=== PATIENT | male | born 1960 | race Caucasian/White ===

== ENCOUNTER → 2017-10-23 14:02 | Outpatient (POV) | payer MEDICARE, SELFPAY | PROVIDERS: PCP Family Medicine | DX: Z00.00 Encounter for general adult medical examination without abnormal findings (principal) ==

== ENCOUNTER → 2019-04-22 14:29 | Outpatient (POV) | payer MEDICARE, SELFPAY | PROVIDERS: Visit Provider Family Medicine | DX: Z00.00 Encounter for general adult medical examination without abnormal findings (principal) ==

== ENCOUNTER → 2021-01-19 13:29 | Outpatient (CLI) | payer MEDICARE, SELFPAY ==
--- NOTE | 2021-01-19 13:40 | XR_ITS ---
PROCEDURE: XR SHOULDER RT MIN 2V CLINICAL INDICATION: RT SHOULDER PAIN COMPARISON: No exams were available for comparison FINDINGS: No fracture or dislocation. No lytic or blastic change. There is normal mineralization. There is minimal hypertrophic change along the undersurface of the acromion. No significant subacromial stenosis. Other findings:None. IMPRESSION: Minimal hypertrophic change the acromion otherwise negative Dictated by: Garret Davalos MD 01/19/2021 13:57 Garret Davalos MD in [place] 01/19/2021 13:57
== END ==
PROVIDERS: PCP Nurse Practitioner; Visit Provider Nurse Practitioner
DX: M25.519 Pain in unspecified shoulder (principal)
CPT/HCPCS: 73030

== ENCOUNTER → 2023-08-06 14:33 | Outpatient (CLI) | payer MEDICARE, SELFPAY ==
--- NOTE | 2023-08-06 14:46 | MR_ITS ---
FINAL REPORT CLINICAL HISTORY: LEFT SCIATICA NERVE PAIN COMPARISON: None FINDINGS: Multiplanar MR imaging of the lumbar spine was performed without contrast. On the sagittal T2-weighted images, there is abnormal decreased signal throughout the lumbar discs. The vertebrae are of normal height. The vertebral alignment is normal. L1-2: There is no significant canal stenosis or neural foraminal narrowing. L2-3: A small annular bulge is present. There is mild bilateral neural foraminal narrowing. L3-4: A small to moderate annular bulge is present, with moderate bilateral neural foraminal narrowing. L4-5: A small to moderate annular bulge is present, with mild to moderate bilateral neural foraminal narrowing. L5-S1: There is no significant canal stenosis or neural foraminal narrowing. IMPRESSION: Multilevel lumbar degenerative changes present, with neural foraminal narrowing at the L3-4 and L4-5 levels as described. Reviewed, Interpreted and Dictated by Arnoldo Teresa MD Transcribed by Mariam Love Authenticated and . [facility]
== END ==
LOC: RAD 14:34
PROVIDERS: PCP Nurse Practitioner; Visit Provider Family Medicine
DX: M54.32 Sciatica, left side (principal)
CPT/HCPCS: 72148; 76376

== ENCOUNTER → 2023-09-18 14:59 | Outpatient (POV) | payer MEDICARE, SELFPAY ==
--- NOTE | 2023-09-18 15:01 | A.OFFVIS_ITS ---
HPI Data of Consult Patient: new to practice Consult date: 09/18/23 Requesting Physician: Margaux Villarreal APRN Primary Care Provider: Edy Celis MD Consult Narrative History of present illness: Mr. Villegas is a 63 year old male who presents today as a new patient. He is a referral from Dr. Celis's office. Today he rates his pain an 8 out of 10. Patient states his pain is all in his mid to low back with radiating symptoms into his bilateral lower extremities. Patient does state this is been going on for at least a year and progressively worsening over time. Patient denies any specific trauma or injury that initially led to his symptoms. Patient does describe his pain as a achy sensation with some sharp shooting pains and some numbness into his extremities. Patient does state that the pain does interfere with his ability perform activities of daily living such as cooking and cleaning or his hobbies such as golfing. Patient does state the pain is much worse when he is up for prolonged walking or standing and that frequently has to stop and take breaks. Patient has tried Tylenol and ibuprofen along with heat and ice and topicals with minimal relief. Patient denies any previous back surgery or injection history. Patient states he has saw a chiropractor on a regular basis and it does help however it is only been temporary relief and it comes back. Patient states he has typically very active and does home stretching and exercise for longer than 6 weeks with minimal improvement. Patient denies any heart or kidney issues. He is interested in any help we may be able to provide. Patient is not on any scheduled medications. His Reggie has been reviewed and is appropriate. CC: Margaux Villarreal APRN [facility] Disclaimer: The information contained in this section may have been updated after the patient was seen, as this information can be updated by other users. Medical History (Updated 09/18/23 @ 15:44 by Margaux Villarreal APRN) Cataract Depression HTN (hypertension) EDOUARD (obstructive sleep apnea) Osteoarthritis Seasonal allergies Surgical History (Updated 09/18/23 @ 15:27 by Adilia Knight RN) H/O arthroscopic knee surgery H/O shoulder surgery History of partial knee replacement S/P LASIK (laser assisted in situ keratomileusis) of both eyes Family History (Updated 09/18/23 @ 15:34 by Adilia Knight RN) Other Heart disease Viral meningitis Social History Smoking Status: Unknown if ever smoked alcohol intake: never current occupational status: employed Travel in the last 8 weeks: None Review of Systems Review of Systems Review of systems:: pertinent systems reviewed and negative unless documented below Review of systems (narrative): Review of Systems: General: No recent weight changes, no fever, no sleep disturbances Respiratory: No cough, no shortness of air, no recurring pulmonary infections Cardiovascular/peripheral vascular: No chest pain, no palpitations, no edema, no shortness of breath Gastrointestinal: No new onset incontinence, normal bowel movements reported Genitourinary: No new onset incontinence Musculoskeletal: Low back pain, bilateral leg pain Psychiatric: [Normal mood/affect] Neurological: [Denies weakness in extremities], [denies balance issues] Meds Home Medications and Allergies Home Medications Medication Instructions Recorded Confirmed Type benazepril 40 mg tablet 40 mg PO DAILY BLOOD PRESSURE 09/18/23 09/18/23 History bupropion HCl 300 mg 24 hr tablet, 300 mg PO DAILY MOOD 09/18/23 09/18/23 History extended release fluoxetine 40 mg capsule 40 mg PO DAILY MOOD 09/18/23 09/18/23 History montelukast 10 mg tablet 10 mg PO DAILY ALLERGIES 09/18/23 09/18/23 History New Prescriptions to Start Prescriptions: Allergies Allergy/AdvReac Type Severity Reaction Status Date / Time No Known Allergies Allergy Verified 06/03/18 11:43 Objective Narrative: Physical Exam: General: Alert and oriented x3, no acute distress, pleasant and cooperative Lungs: Respirations even and unlabored, symmetrical chest expansion Eyes: PERRL Musculoskeletal: Flexion and extension of lumbar [spine] somewhat guarded secondary to pain, [antalgic gait noted] Neurological: Speech clear, no gross sensory deficit Additional findings Additional findings: FINDINGS: Multiplanar MR imaging of the lumbar spine was performed without contrast. On the sagittal T2-weighted images, there is abnormal decreased signal throughout the lumbar discs. The vertebrae are of normal height. The vertebral alignment is normal. L1-2: There is no significant canal stenosis or neural foraminal narrowing. L2-3: A small annular bulge is present. There is mild bilateral neural foraminal narrowing. L3-4: A small to moderate annular bulge is present, with moderate bilateral neural foraminal narrowing. L4-5: A small to moderate annular bulge is present, with mild to moderate bilateral neural foraminal narrowing. L5-S1: There is no significant canal stenosis or neural foraminal narrowing. IMPRESSION: Multilevel lumbar degenerative changes present, with neural foraminal narrowing at the L3-4 and L4-5 levels as described. Reviewed, Interpreted and Dictated by Arnoldo Teresa MD Transcribed by Mariam Love Authenticated and . [facility] Assessment and Plan *Assessment and plan (1) Degenerative disc disease, lumbar: Status: Acute Category: Medical Code(s): M51.36 - Other intervertebral disc degeneration, lumbar region (2) Low back pain: Status: Acute Qualifiers: Chronicity: chronic Back pain laterality: bilateral Sciatica presence: without sciatica Qualified Code(s): M54.50 - Low back pain, unspecified; G89.29 - Other chronic pain Category: Medical Code(s): M54.50 - Low back pain, unspecified (3) Lumbar radiculopathy: Status: Acute Category: Medical Code(s): M54.16 - Radiculopathy, lumbar region (4) Mid back pain: Status: Acute Category: Medical Code(s): M54.9 - Dorsalgia, unspecified Plan Patient is experiencing significant pain in his low back and bilateral lower extremities. Patient had limited range of motion of his lumbar spine during today's visit. I have discussed with the patient that he may benefit from a lumbar epidural steroid injection. Risk and benefits were discussed with the patient and he would like to proceed forward with this plan of care. Patient is not on any blood thinners. I will also order the patient a compounded cream. Patient has tried and failed conservative treatment such as oral medications, heat and ice, topicals, chiropractor therapy, at home stretching exercises for longer than 6 weeks. Patient will be scheduled for an LESI L3-L4 under fluoroscopy. Patient has been instructed to contact the clinic with any concerns before the next appointment. Dr. Harley has reviewed this note and agrees with this plan of care. This note was dictated using voice recognition software and make contain errors or omissions.
[2023-09-18 15:40] VITALS: BP 132/79; PULSE 70; RESP 18; O2SAT 94; BMI 38.0
== END ==
PROVIDERS: PCP Family Medicine; Visit Provider Nurse Practitioner Family
DX: M51.16 Intervertebral disc disorders with radiculopathy, lumbar region (principal); G89.29 Other chronic pain; M54.6 Pain in thoracic spine; M54.50 Low back pain, unspecified
CPT/HCPCS: 99202; G0463

== ENCOUNTER 2023-10-01 08:40 | Day surgery (SDC) | payer MEDICARE, SELFPAY ==
[2023-10-01 08:54] VITALS: BP 160/85; PULSE 73; RESP 18; TEMP 36.2; O2SAT 94; BMI 38.5
[2023-10-01] MEDS: methylPREDNISolone ACETATE 80MG/ML VIAL 80 MG (09:16)
[2023-10-01 09:17] VITALS: BP 171/82; PULSE 72; RESP 18; O2SAT 97
[2023-10-01 09:18] VITALS: BP 171/82; PULSE 69; RESP 18; O2SAT 97
[2023-10-01 09:20] VITALS: BP 188/89; PULSE 71; RESP 16; O2SAT 94
--- NOTE | 2023-10-01 09:20 | EXP.PAIN.PRO ---
Procedure Date: 10/01/23 Time: 09:10 Anesthesiologist:: Juan Covarrubias CRNA Complications:: None Pre-procedure Diagnosis:: Degenerative disc lumbar spine multilevels. Lumbar radiculopathy. Post-procedure Diagnosis:: Same. Indications for Procedure:: Very pleasant 63-year-old male comes to clinic today for L3-4 lumbar epidural steroid injection. Patient describes low back pain as constant, dull, aching. Patient also reports bilateral hip and leg radiculopathy. He rates his pain 8/10. Procedure Details:: Procedure: Lumbar epidural steroid injection under fluoroscopy Informed consent was obtained and the risks and benefits of the procedure were explained to the patient. The patient was taken to the procedure room and noninvasive monitors placed, including noninvasive blood pressure cuff and pulse oximeter. The back was viewed using C-arm Fluoroscopy and prepped using Chloraprep as a cleansing solution and the L4-L5 interspace was palpated. Skin and subcutaneous tissues were anesthetized using lidocaine 1.5% and a 25-gauge needle. After this, an 18-gauge Touhy epidural needle was placed into the L4-L5 interspace and advanced using fluoroscopic guidance and loss of resistance to air until the epidural space was encountered. After confirmation of needle placement in the epidural space, with dye, a solution containing normal saline, 3 mL and Depo-Medrol 80 mg were incrementally injected into the lumbar epidural space. The patient tolerated the procedure well with no complications. The patient was observed in the Pain Clinic and then discharged home neurologically intact. Plan and Disposition:: Patient was discharged without incident.
== END 2023-10-01 09:20 | disposition home or self-care (01) ==
PROVIDERS: PCP Family Medicine; Visit Provider Nurse Anesthetist, Certified Registered
DX: M51.16 Intervertebral disc disorders with radiculopathy, lumbar region (principal)
CPT/HCPCS: 62323; J1040

== ENCOUNTER 2023-10-21 08:29 | Outpatient (POV) | payer MEDICARE, SELFPAY ==
--- NOTE | 2023-10-21 08:43 | EXP.PAIN.SOA ---
[facility] Pain Management SOAP Note Subjective:: Patient is a pleasant 63-year-old male who presents today for follow-up of lumbar epidural steroid injection L4-L5 on 10/01/2023. We are currently treating the patient for degenerative disc disease of lumbar spine with lumbar radiculopathy symptoms. Today he rates his pain a 2 out of 10. Patient states that he has had at least 90 % improvement following this injection and feels like it is still continuing to provide additional relief. Patient states he has been able to increase his activity with decreased pain symptoms and feels overall more functional. Patient does state that he still has some pain however it is much more manageable and that he only has an occasional spasm. Patient is an avid golfer and states he he is hoping he gets to be able to do this activity with less pain. Patient does state that the compounded cream was not covered by his insurance so he did not proceed forward at that time. His Reggie has been reviewed and is appropriate. Review of Systems: General: No recent weight changes, no fever, no sleep disturbances Respiratory: No cough, no shortness of air, no recurring pulmonary infections Cardiovascular/peripheral vascular: No chest pain, no palpitations, no edema, no shortness of breath Gastrointestinal: No new onset incontinence, normal bowel movements reported Genitourinary: No new onset incontinence Musculoskeletal: Low back pain Psychiatric: [Normal mood/affect] Neurological: [Denies weakness in extremities], [denies balance issues] Objective:: Physical Exam: General: Alert and oriented x3, no acute distress, pleasant and cooperative Lungs: Respirations even and unlabored, symmetrical chest expansion Eyes: PERRL Musculoskeletal: Flexion and extension of lumbar [spine] somewhat guarded secondary to pain, [antalgic gait noted] Neurological: Speech clear, no gross sensory deficit Assessment:: Degenerative disc disease of lumbar spine with lumbar radiculopathy symptoms Plan:: Patient has had significant improvement following his lumbar epidural and does not require any additional injection therapy at this time. Patient will return to clinic in 1 month for reevaluation of symptoms and plan of care. Patient has been instructed to contact the clinic with any concerns before the next appointment. Dr. Harley has reviewed this note and agrees with this plan of care. This note was dictated using voice recognition software and make contain errors or omissions. [facility] Disclaimer: The information contained in this section may have been updated after the patient was seen, as this information can be updated by other users. Medical History Cataract Depression HTN (hypertension) EDOUARD (obstructive sleep apnea) Osteoarthritis Seasonal allergies Surgical History H/O arthroscopic knee surgery H/O shoulder surgery History of partial knee replacement S/P LASIK (laser assisted in situ keratomileusis) of both eyes Family History Other Heart disease Viral meningitis Social History Smoking Status: Unknown if ever smoked alcohol intake: never current occupational status: employed Travel in the last 8 weeks: None
[2023-10-21 09:26] VITALS: BP 108/70; PULSE 74; RESP 18; O2SAT 94; BMI 37.8
== END 2023-10-21 23:59 ==
LOC: SC.PAIN 08:30
PROVIDERS: PCP Family Medicine; Visit Provider Nurse Practitioner Family
DX: M51.16 Intervertebral disc disorders with radiculopathy, lumbar region (principal)
CPT/HCPCS: 99212; G0463

== ENCOUNTER 2023-11-08 09:42 | Outpatient (POV) | payer MEDICARE, SELFPAY ==
[2023-11-08 09:53] VITALS: BP 137/74; PULSE 78; RESP 18; O2SAT 95; BMI 37.4
--- NOTE | 2023-11-08 10:09 | EXP.PAIN.SOA ---
[facility] Pain Management SOAP Note Subjective:: Patient is a pleasant 63-year-old male who presents today for follow-up. Today he rates his pain a 2 out of 10. He states that he is experiencing more pain in his neck with symptoms into his right shoulder, arm and hand. Patient states this has been going on for about 4 days unrelated to any specific trauma or injury. He states that he was even at the bank the other day and went to turn his head to the nightm[place] and had the pain shooting down his arm. He does state he has numbness and tingling into his extremity. He states he even had to take his watch off the other day because it was causing worsening symptoms on the right arm. Patient denies any prior imaging of his cervical spine. He does also state today he is feeling a little bit more pain in his hips. Patient did previously have a lumbar epidural L4-L5 on October 01 that did provide 90% improvement. He states that this did significantly improve his pain and it is just starting to have a little bit more that he notices into his hips and upper thighs. Patient was ordered compounded cream however it was not covered by his insurance so he did not proceed forward with this. Patient does state that he is going to call him and try this. His Reggie has been reviewed and is appropriate. Review of Systems: General: No recent weight changes, no fever, no sleep disturbances Respiratory: No cough, no shortness of air, no recurring pulmonary infections Cardiovascular/peripheral vascular: No chest pain, no palpitations, no edema, no shortness of breath Gastrointestinal: No new onset incontinence, normal bowel movements reported Genitourinary: No new onset incontinence Musculoskeletal: Neck pain, right shoulder pain/arm/hand pain, bilateral hip/thigh pain Psychiatric: [Normal mood/affect] Neurological: [Denies weakness in extremities], [denies balance issues] Objective:: Physical Exam: General: Alert and oriented x3, no acute distress, pleasant and cooperative Lungs: Respirations even and unlabored, symmetrical chest expansion Eyes: PERRL Musculoskeletal: Flexion and extension of cervical [spine] somewhat guarded secondary to pain, [antalgic gait noted] Neurological: Speech clear, no gross sensory deficit Assessment:: Degenerative disc disease of lumbar spine with lumbar radiculopathy symptoms, neck pain with cervical radiculopathy symptoms right-sided Plan:: Patient is experiencing more issues in his neck with radiating symptoms to his right shoulder and down his arm to his hand. I have discussed with the patient that he may benefit from a cervical epidural in the future. Risk and benefits were discussed with the patient and we will follow-up with this at future visits. I will order the patient baclofen 5 mg 3 times a day and provide a 2-week supply of this medication. Patient is going to get the compounded cream and try this on his neck and upper extremity. Patient will return to our clinic in 2 weeks for reevaluation of symptoms and plan of care. Patient has been instructed to contact the clinic with any concerns before the next appointment. Dr. Harley has reviewed this note and agrees with this plan of care. This note was dictated using voice recognition software and make contain errors or omissions. [facility] Disclaimer: The information contained in this section may have been updated after the patient was seen, as this information can be updated by other users. Medical History Cataract Osteoarthritis EDOUARD (obstructive sleep apnea) Seasonal allergies HTN (hypertension) Depression Surgical History S/P LASIK (laser assisted in situ keratomileusis) of both eyes History of partial knee replacement H/O arthroscopic knee surgery H/O shoulder surgery Family History Other Heart disease Viral meningitis Social History Smoking Status: Unknown if ever smoked alcohol intake: never current occupational status: employed Travel in the last 8 weeks: None
== END 2023-11-08 23:59 | disposition home or self-care (01) ==
PROVIDERS: PCP Family Medicine; Visit Provider Nurse Practitioner Family
DX: M54.12 Radiculopathy, cervical region
CPT/HCPCS: 99212; G0463

== ENCOUNTER 2024-01-16 10:14 | Outpatient (POV) | payer MEDICARE, SELFPAY ==
--- NOTE | 2024-01-16 10:22 | EXP.PAIN.SOA ---
[facility] Pain Management SOAP Note Subjective:: Patient is a pleasant 63-year-old male who presents today for 2-month follow-up. Today he rates his pain a 5 out of 10. He denies any new trauma or injury. He states he is experiencing worsening pain in his low back and legs along with his hip. Patient did previously have a lumbar epidural on October 01 that did provide upwards of 90% relief lasting a couple of months. Patient does state that he is back to his baseline with aching and throbbing, numbness and tingling into his extremities. He does state the pain is interfering with his ability perform activities of daily living such as cooking and cleaning. He is interested in repeating his prior injection because it did provide significant improvement of his overall function. Patient has been prescribed compounded cream from our office however he states he has not yet tried this medication. Patient does state he tried the baclofen tablet at bedtime however does not really seem to notice much improvement. Patient does also state that he has continued to have neck pain and that physical therapy even mention that he may have something wrong with the disc. His Reggie has been reviewed and is appropriate. Review of Systems: General: No recent weight changes, no fever, no sleep disturbances Respiratory: No cough, no shortness of air, no recurring pulmonary infections Cardiovascular/peripheral vascular: No chest pain, no palpitations, no edema, no shortness of breath Gastrointestinal: No new onset incontinence, normal bowel movements reported Genitourinary: No new onset incontinence Musculoskeletal: Low back pain, bilateral leg pain, hip pain Psychiatric: [Normal mood/affect] Neurological: [Denies weakness in extremities], [denies balance issues] Objective:: Physical Exam: General: Alert and oriented x3, no acute distress, pleasant and cooperative Lungs: Respirations even and unlabored, symmetrical chest expansion Eyes: PERRL Musculoskeletal: Flexion and extension of lumbar [spine] somewhat guarded secondary to pain, [antalgic gait noted] Neurological: Speech clear, no gross sensory deficit Assessment:: Degenerative disc disease Lumbar spine with lumbar radiculopathy symptoms, neck pain with cervical radiculopathy symptoms, hip pain Plan:: Patient is experiencing worsening pain in his low back and legs with limited range of motion. Patient did previously have a lumbar epidural back at the beginning of September that did provide 90% improvement. Patient did get improved overall function with decreased pain for several months. I have discussed with the patient that he may benefit from a repeat lumbar epidural steroid injection. Risk and benefits were discussed with the patient and he would like to proceed forward with this plan of care. Patient has strong and failed conservative therapy including continued at home stretching and exercise between injections. Patient is currently in physical therapy. We will schedule the patient for an LESI L3-L4 under fluoroscopy. I did also discussed with the patient to try taking 2 of the baclofen 5 mg tablets at bedtime and see if he notices any improvement with that dosage. He has been counseled to keep us posted for future when we send in refills. I will also go ahead and get x-ray imaging of his cervical spine with the plan to proceed forward with advanced imaging at a later date. Patient is agreeable to this. Patient has been instructed to contact the clinic with any concerns before the next appointment. Dr. Harley has reviewed this note and agrees with this plan of care. This note was dictated using voice recognition software and make contain errors or omissions. [facility] Disclaimer: The information contained in this section may have been updated after the patient was seen, as this information can be updated by other users. Medical History Cataract Osteoarthritis EDOUARD (obstructive sleep apnea) Seasonal allergies HTN (hypertension) Depression Surgical History S/P LASIK (laser assisted in situ keratomileusis) of both eyes History of partial knee replacement H/O arthroscopic knee surgery H/O shoulder surgery Family History Other Heart disease Viral meningitis Social History Smoking Status: Unknown if ever smoked alcohol intake: never current occupational status: employed Travel in the last 8 weeks: None
[2024-01-16 10:23] VITALS: BP 120/79; PULSE 79; RESP 18; O2SAT 95; BMI 37.8
== END 2024-01-16 23:59 | disposition home or self-care (01) ==
LOC: SC.PAIN 10:15
PROVIDERS: PCP Family Medicine; Visit Provider Nurse Practitioner Family
DX: M51.16 Intervertebral disc disorders with radiculopathy, lumbar region (principal); M54.2 Cervicalgia; M25.559 Pain in unspecified hip
CPT/HCPCS: 99212; G0463

== ENCOUNTER 2024-01-16 11:33 | Outpatient (CLI) | payer MEDICARE, SELFPAY ==
--- NOTE | 2024-01-16 11:40 | XR_ITS ---
FINAL REPORT CLINICAL HISTORY: NECK PAIN FINDINGS: CERVICAL SPINE 4 views were obtained. There is no acute fracture or subluxation. There is moderate disc space narrowing at C4-5, C5-6 and C6-7. Small posterior osteophytes are seen at C3-4, C4-5 and C5-6. There is moderate neuroforaminal narrowing at C5-6 and C6-7. Soft tissues are unremarkable. IMPRESSION: Degenerative changes with neuroforaminal narrowing. Reviewed, Interpreted and Dictated by Arnoldo Teresa MD Transcribed by Federica Beltre Authenticated and [facility]
== END 2024-01-16 23:59 | disposition home or self-care (01) ==
LOC: RAD 11:34
PROVIDERS: PCP Family Medicine; Visit Provider Nurse Practitioner Family
DX: M51.16 Intervertebral disc disorders with radiculopathy, lumbar region (principal); M54.2 Cervicalgia; M25.559 Pain in unspecified hip
CPT/HCPCS: 72050; 99212; G0463

== ENCOUNTER 2024-02-04 08:00 | Outpatient (RCR) | payer MEDICARE, SELFPAY ==
--- NOTE | 2024-01-13 10:53 | HMH.PTOPEV ---
PT Outpatient Evaluation Rehab PT Outpatient Evaluation Start: 01/13/24 08:01 Freq: Status: Active Protocol: Document 01/13/24 08:01 JAZMYNE (Rec: 01/13/24 10:46 [email or web address] [id number]) E-signed By Farhana Salguero, PT Outpatient Therapy Subjective History Subjective History This is an initial evaluation for 63 y/o male, Celso Villegas, who presents with referral for neck pain and LBP with radiculopathy. Pt reports his LBP is more debilitating than his neck pain. Pt reports both pain areas have been around for years. Neck pain: Pt reports feels like a crick in the neck. Pt sees a chiropractor. Pt reports he started having this particular neck pain hours after an adjustment. Pt reports some numbness and tingling down his R arm. Pain is mostly right sided. Reports some relief with traction. Denies prior trauma or injury, HAs, dizziness, diplopia, or vomitting. Denies having imaging on his neck. LBP: Pain is central and goes into his left leg. Shooting pain usually stops at left knee but does radiate down to foot at times. Has had previous injection in [facility] and reports it helped a lot. Pt meets with his doctor on the to discuss further treatment. Pt is taking some time off of work ([employer] employee) and has difficulty performing recreational tasks (pt enjoys golfing). New diagnosis of cancer in past 12 No months? Chief Complaint Pain,Stiff,Paresthesia Symptoms Relieved By Heat,Prescription Meds Level of pain today (0-10) 2 Pain scale - at its best (0-10) 2 Pain scale - at its worst (0-10) 9 Cervical Eval Palpation Cervical Muscles R Cervical Paraspinal,R Suboccipital Cervical/Thoracic Palpation Findings Tenderness Posture Head/C-Spine Posture Sitting Position Neutral Position Flexibility Deficits Upper Trapezius Muscle Length (R) Moderate Tightness,(L) Moderate Tightness Passive Joint Mobility Cervical PIVM Dec: R C3/4 L C3/4 R C4/5 L C4/5 AROM Cervical Spine Extension Active Range of 15, nonpainful Motion (degrees) Cervical Spine Flexion Active Range of 55, nonpainful Motion (degrees) Cervical Spine Right Lateral Flexion 18, painful on R Active Range of Motion (degrees) Cervical Spine Left Lateral Flexion 20, nonpainful Active Range of Motion (degrees) Cervical Spine Right Rotation Active 65, nonpainful Range of Motion (degrees) Cervical Spine Left Rotation Active 65, nonpainful Range of Motion (degrees) MMT Bilateral Deltoid (C5) 4- Good- Biceps Brachii Strength Grade 4- Good- Wrist Extension Strength Grade 4- Good- Triceps Brachii Strength Grade 4- Good- Special Test C-spine Verterbral Accessory Movements Right P/A [place] that Elicit Symptoms C-Spine Foraminal Distraction Test Positive Lumbopelvic Eval Posture Thoracic Spine Posture Standing Position Neutral Palapation tenderness left lumbar spinal tenderness Yes: 2/4 TTP paraspinal tenderness Yes: 1/4 TTP Lumbar/Sacral Palpation Findings Tenderness Accessory Movement L-spine Vertebrae Accessory Movements Left P/A [place] that Elicit Symptoms L3 left L4 left Range of Motion Lumbar Spine Active Flexion Range of 28, painful central Motion (degrees) Lumbar Spine Active Extension Range of 18, non-painful Motion (degrees) Left Lumbar Spine Lateral Flexion Active 25, nonpainful Range of Motion (degrees) Right Lumbar Spine Lateral Flexion 25, pulling Active Range of Motion (degrees) Lumbar Spine ROM Limitations Soft Tissue Tightness,Pain Manual Muscle Test Bilateral Knee Extension Strength Grade 4- Good- Knee Flexion Strength Grade 4- Good- Hip Flexion Strength Grade 4- Good- Hip Abduction Strength Grade 4- Good- Hip Adduction Strength Grade 4- Good- Special Tests Hip Juan (SAGE) Test Positive Left,Positive Right Hip Piriformis Test Positive Left Sciatic Nerve Tension Test Positive Left Lumbar Long [place] Distraction Test/Manual Negative Traction Oswestry Index Section 1 Pain Intensity The pain comes and goes and is severe Section 2 Personal Care (Washing,Dresing) change my way of washing or dressing in order to avoid pain Section 3 Lifting I can only lift very light weights at most Section 4 Walking I cannot walk at all without increasing pain Section 5 Sitting Pain prevents me from sitting for more than 10 minutes Section 6 Standing I avoid standing because it increases the pain immediately Section 7 Sleeping Because of my pain, my normal night's sleep is less than 4 hours Section 8 Social Life I hardly have any social life because of pain Section 9 Traveling Pain restricts me to short necessary journeys under 30 minutes Section 10 Changing Degreee of Pain My pain is rapidly getting worse Score and Risk Level Oswestry Sc 40 Oswestry Risk Level Completely Disabled Neck Disability Index Neck Disability Index Section 1: Pain Intensity The pain is fairly severe at the moment Section 2: Personal Care (washing, I can look after myself dressing, etc.) normally but it causes extra pain Section 3: Lifting I cannot lift or carry anything Section 4: Reading I can't read as much as I want because of moderate pain in my neck Section 5: Headaches I have moderate headaches, which come frequently Section 6: Concentration I have a great deal of difficulty in concentrating when I want to Section 7: Work I can hardly do any work at all Section 8: Driving I can't drive my car as long as I want because of moderate pain in my Section 9: Sleeping My sleep is greatly disturbed (3-5 hrs sleepless) Section 10: Recreation I can hardly do any recreation activities because of pain in my neck NDI Score 34 Outpatient Therapy Assessment Impairments Problems/Impairmments Palpation Tenderness,Impaired Range of Motion,Impaired Strength,Impaired Walking, Impaired Standing,Impaired Squatting,Impaired Bending, Impaired Recreational Activities,Impaired Work Activities,Subjective C/O Pain ,Impaired Self Care/Self Management Prognosis Rehab Potential Good Clinical Impression Consistent with Diagnosis Yes Short Term Goals Number of Weeks 3 Increase Range of Motion Yes: Lumbar AROM inc by 5 degrees in affected planes Increase Strength Yes: BLE and BUE 4/5 MMT to improve functional strength Improve Oswestry Score Yes: Improve by 3 points to decrease self-perceived disability Decrease Subjective C/O Pain Yes: At worst 7/10 to decrease pain severity. Patient to be Ind w/ HEP Yes Employment Specialist Goals Decreased Palpation Tenderness Yes: 0/4 TTP affected areas to decrease symptom irritability Increase Range of Motion Yes: Lumbar and cervical AROM WFL to improve daily function and QOL. Increase Strength Yes: BLE and BUE 5/5 MMT to maximize participation in recreational tasks (golf) Improve Oswestry Score Yes: Improve by MCID of 10 points to improve QOL Decrease Subjective C/O Pain Yes: 48 hour back pain avg of 4/10 to demo decreased severity and irritability. Patient to be Ind w/ Advanced HEP Yes Outpatient Therapy Plan of Care Treatment Plan May Include Therapeutic Exercise Including Home Yes Exercise Program Manual Therapy Techniques Yes Neuromuscular Re-education Yes Therapeutic Activities to Return to Yes Previous Functional/Work Level Gait Training Yes ADL/Self Care Education Yes Mechanical Traction Yes Dry Needling Yes Thermal Modalities Yes Electrical Stimulation Yes Ultrasound/Phonophoresis Yes Iontophoresis Yes Orthotics/Bracing/Splinting Yes Massage Yes Eval/Re-Eval Yes Aquatic Therapy Yes Frequency Times per week 2 times Duration Number of Weeks 5-6 weeks Addendums This patient is a candidate for social No or vocational rehab? Patient/Guardian verbally acknowledges Yes understanding of treatment program and consents to further treatment? Patient/Guardian verbally acknowledges Yes understanding of diagnosis, prognosis and goals for treatment? Eval Complexity PT Charges 65433 - Moderate Complexity Shoulder/Elbow Eval Shoulder Objective Measurements Elbow Objective Measurements PHYSICIAN CERTIFICATION: I certify the specified therapy services for Celso Villegas are required, authorized, and reviewed every 30 days.
== END 2024-02-04 08:05 | disposition home or self-care (01) ==
LOC: PT 08:00
PROVIDERS: Visit Provider Physician Assistant
DX: M54.16 Radiculopathy, lumbar region (principal)
CPT/HCPCS: 97010; 97012; 97014; 97110; 97163; G0283

== ENCOUNTER 2024-02-11 08:48 | Day surgery (SDC) | payer MEDICARE, SELFPAY ==
[2024-02-11 08:54] VITALS: BP 142/79; PULSE 82; RESP 18; TEMP 36.3; O2SAT 96; BMI 37.8
[2024-02-11 09:17] VITALS: BP 122/78; PULSE 76; PULSE 78; RESP 18; O2SAT 94; O2SAT 98
[2024-02-11] MEDS: methylPREDNISolone ACETATE 80MG/ML VIAL 80 MG (09:17)
--- NOTE | 2024-02-11 09:24 | EXP.PAIN.PRO ---
Procedure Date: 02/11/24 Time: 09:10 Anesthesiologist:: Juan Covarrubias CRNA Complications:: None Pre-procedure Diagnosis:: Degenerative disc lumbar spine multilevels for lumbar radiculopathy. Post-procedure Diagnosis:: Same. Indications for Procedure:: Patient is a very pleasant 63-year-old male comes our clinic today for repeat L3-4 lumbar epidural steroid injection. Patient had 5 to 8 weeks of improvement in August with the same injection. Today, he describes low lumbar back pain as well as bilateral hip and leg radicular symptoms. He rates his pain 7/10. Procedure Details:: Procedure: Lumbar epidural steroid injection under fluoroscopy Informed consent was obtained and the risks and benefits of the procedure were explained to the patient. The patient was taken to the procedure room and noninvasive monitors placed, including noninvasive blood pressure cuff and pulse oximeter. The back was viewed using C-arm Fluoroscopy and prepped using Chloraprep as a cleansing solution and the L3-4 interspace was palpated. Skin and subcutaneous tissues were anesthetized using lidocaine 1.5% and a 25-gauge needle. After this, an 18-gauge Touhy epidural needle was placed into the L3-4 interspace and advanced using fluoroscopic guidance and loss of resistance to air until the epidural space was encountered. After confirmation of needle placement in the epidural space, with dye, a solution containing normal saline, 3 mL and Depo-Medrol 80 mg were incrementally injected into the lumbar epidural space. The patient tolerated the procedure well with no complications. The patient was observed in the Pain Clinic and then discharged home neurologically intact. Plan and Disposition:: Patient was discharged without incident.
[2024-02-11 09:31] VITALS: BP 146/80; PULSE 76; RESP 18; O2SAT 96
== END 2024-02-11 09:32 | disposition home or self-care (01) ==
PROVIDERS: PCP Family Medicine; Visit Provider Nurse Anesthetist, Certified Registered
DX: M51.16 Intervertebral disc disorders with radiculopathy, lumbar region (principal)
CPT/HCPCS: 62323; J1010

== ENCOUNTER 2024-02-12 11:14 | Outpatient (CLI) | payer MEDICARE, SELFPAY ==
--- NOTE | 2024-02-12 11:17 | XR_ITS ---
FINAL REPORT CLINICAL HISTORY: LT KNEE JOINT PAIN COMPARISON: None FINDINGS: LEFT KNEE 3 views of the left knee were obtained. There is no acute fracture or dislocation. There is a unilateral medial compartment arthroplasty present. The hardware is unremarkable. Visualized joint spaces are normally aligned. Soft tissues are unremarkable. IMPRESSION: Unilateral medial compartment arthroplasty is present in the knee. No acute bony abnormality identified. Reviewed, Interpreted and Dictated by Yuliana Salazar MD Transcribed by Mariam Love Authenticated and [facility]
== END 2024-02-12 23:59 | disposition home or self-care (01) ==
LOC: RAD 11:15
PROVIDERS: PCP Family Medicine; Visit Provider Physician Assistant
DX: M25.562 Pain in left knee (principal)
CPT/HCPCS: 73562

== ENCOUNTER 2024-03-09 10:25 | Outpatient (POV) | payer MEDICARE, SELFPAY ==
--- NOTE | 2024-03-09 10:40 | A.OFFVIS_ITS ---
[facility] Disclaimer: The information contained in this section may have been updated after the patient was seen, as this information can be updated by other users. Medical History Cataract Osteoarthritis EDOUARD (obstructive sleep apnea) Seasonal allergies HTN (hypertension) Depression Surgical History S/P LASIK (laser assisted in situ keratomileusis) of both eyes History of partial knee replacement H/O arthroscopic knee surgery H/O shoulder surgery Family History Other Heart disease Viral meningitis Social History Smoking Status: Unknown if ever smoked alcohol intake: never current occupational status: employed Travel in the last 8 weeks: None PM Subjective & Objective Subjective Subjective:: Patient is a pleasant 63-year-old male who presents today for follow-up of lumbar epidural steroid injection L3-L4 on 02/11/2024. Today he rates his pain a 0 out of 10 they are in his back however does state that he has bilateral hip cramps more prominent on the right side today. He states he would right leg cramping a 6 out of 10 but states that it is more manageable. He states he has been doing exercises that he had been given in physical therapy and it does help stretch this area. Patient denies any new trauma or injury and states that this is been going on for some time. Patient does state that he has had at least 75% improvement following this injection and feels like it still helping. Patient states overall he has improved function and can get up and do more due to the decreased pain. Patient is prescribed compounded cream and has been tried on baclofen in the past. His Reggie has been reviewed and is appropriate. Review of Systems: General: No recent weight changes, no fever, no sleep disturbances Respiratory: No cough, no shortness of air, no recurring pulmonary infections Cardiovascular/peripheral vascular: No chest pain, no palpitations, no edema, no shortness of breath Gastrointestinal: No new onset incontinence, normal bowel movements reported Genitourinary: No new onset incontinence Musculoskeletal: Bilateral hip pain Psychiatric: [Normal mood/affect] Neurological: [Denies weakness in extremities], [denies balance issues] Pain at rest (0-10 scale): 6 Objective Objective:: Physical Exam: General: Alert and oriented x3, no acute distress, pleasant and cooperative Lungs: Respirations even and unlabored, symmetrical chest expansion Eyes: PERRL Musculoskeletal: Flexion and extension of bilateral hips somewhat guarded secondary to pain, [antalgic gait noted] Neurological: Speech clear, no gross sensory deficit Has patient had previous pain injection?: Yes Percent improvement in pain since last injection: 75% Conservative treatment options previously tried: Home exercise plan Length of treatment: More than 6 weeks Meds Home Medications and Allergies Home Medications Medication Instructions Recorded Confirmed Type benazepril 40 mg tablet 40 mg PO DAILY BLOOD PRESSURE 09/18/23 02/11/24 History bupropion HCl 300 mg 24 hr tablet, 300 mg PO DAILY MOOD 09/18/23 02/11/24 History extended release fluoxetine 40 mg capsule 40 mg PO DAILY MOOD 09/18/23 02/11/24 History montelukast 10 mg tablet 10 mg PO DAILY ALLERGIES 09/18/23 02/11/24 History baclofen 5 mg tablet 5 mg PO TID PRN muscle spasm #42 11/08/23 02/11/24 Rx tabs New Prescriptions to Start Prescriptions: Allergies Allergy/AdvReac Type Severity Reaction Status Date / Time No Known Allergies Allergy Verified 02/11/24 08:54 Assessment and Plan *Assessment and plan (1) Degenerative disc disease, lumbar: Status: Acute Category: Medical Code(s): M51.36 - Other intervertebral disc degeneration, lumbar region (2) Low back pain: Status: Acute Qualifiers: Chronicity: chronic Back pain laterality: bilateral Sciatica presence: without sciatica Qualified Code(s): M54.50 - Low back pain, unspecified; G89.29 - Other chronic pain Category: Medical Code(s): M54.50 - Low back pain, unspecified Plan Patient has had significant improvement and does not require any additional injection therapy at this time. Patient will return to clinic in 1 month for reevaluation of symptoms and plan of care. Patient has been instructed to contact the clinic with any concerns before the next appointment. Dr. Harley has reviewed this note and agrees with this plan of care. This note was dictated using voice recognition software and make contain errors or omissions.
[2024-03-09 10:57] VITALS: BP 102/65; PULSE 94; RESP 16; O2SAT 97; BMI 38.2
== END 2024-03-09 23:59 | disposition home or self-care (01) ==
LOC: SC.PAIN 10:26
PROVIDERS: PCP Family Medicine; Visit Provider Nurse Practitioner Family
DX: M51.36 Other intervertebral disc degeneration, lumbar region (principal); M54.50 Low back pain, unspecified; G89.29 Other chronic pain
CPT/HCPCS: 99212; G0463

== ENCOUNTER 2024-11-19 11:30 | Outpatient (POV) | payer MEDICARE, SELFPAY ==
--- NOTE | 2024-11-19 11:56 | A.OFFVIS_ITS ---
[facility] Disclaimer: The information contained in this section may have been updated after the patient was seen, as this information can be updated by other users. Medical History (Updated 11/19/24 @ 11:58 by Margaux Villarreal APRN) Cataract Osteoarthritis EDOUARD (obstructive sleep apnea) Seasonal allergies HTN (hypertension) Depression Surgical History S/P LASIK (laser assisted in situ keratomileusis) of both eyes History of partial knee replacement H/O arthroscopic knee surgery H/O shoulder surgery Family History Other Heart disease Viral meningitis Social History Smoking Status: Unknown if ever smoked alcohol intake: never current occupational status: unemployed Travel in the last 8 weeks: None PM Subjective & Objective Subjective Subjective:: Patient is a pleasant 64-year-old male who presents today for worsening pain in his low back and hips. He does also state he has having some pain that radiates up his spine to his neck with numbness however what is really bothering him is the low back and hip pain. He states that it is a 10 out of 10. He states it has been going on for a few months and progressively worsened. He states that he has been still seeing a chiropractor on a regular basis and did even just get his last adjustment yesterday and it did help however it only lasted for a couple of hours. Patient states the pain is constant and worse with certain activities or prolonged sitting or standing. He states it is an aching, throbbing sensation that does interfere with his ability perform activities of daily living such as cooking and cleaning. Patient did have wonderful success with his last injection with our office of the lumbar epidural of L3-L4 that did provide 75% improvement and has continued to work well. Patient is prescribed compounded cream from our office and was tried on baclofen in the past. Patient does not remember how well he did with the baclofen. His Reggie has been reviewed and is appropriate. Review of Systems: General: No recent weight changes, no fever, no sleep disturbances Respiratory: No cough, no shortness of air, no recurring pulmonary infections Cardiovascular/peripheral vascular: No chest pain, no palpitations, no edema, no shortness of breath Gastrointestinal: No new onset incontinence, normal bowel movements reported Genitourinary: No new onset incontinence Musculoskeletal: Low back pain, bilateral hip pain Psychiatric: [Normal mood/affect] Neurological: [Denies weakness in extremities], [denies balance issues] Pain at rest (0-10 scale): 10 Objective Objective:: Physical Exam: General: Alert and oriented x3, no acute distress, pleasant and cooperative Lungs: Respirations even and unlabored, symmetrical chest expansion Eyes: PERRL Musculoskeletal: Flexion and extension of lumbar [spine] somewhat guarded secondary to pain, [antalgic gait noted] point tenderness along bilateral SIs with positive bilateral Chela's, Geovanny's, Gaenslen's, compression and distraction exam Neurological: Speech clear, no gross sensory deficit Has patient had previous pain injection?: No Conservative treatment options previously tried: Home exercise plan Length of treatment: Longer than 12 weeks Meds Home Medications and Allergies Home Medications ?Medication ?Instructions ?Recorded ?Confirmed ?Type benazepril 40 mg tablet 40 mg PO DAILY BLOOD PRESSURE 09/18/23 03/09/24 History bupropion HCl 300 mg 24 hr tablet, 300 mg PO DAILY MOOD 09/18/23 03/09/24 History extended release fluoxetine 40 mg capsule 40 mg PO DAILY MOOD 09/18/23 03/09/24 History montelukast 10 mg tablet 10 mg PO DAILY ALLERGIES 09/18/23 03/09/24 History baclofen 5 mg tablet 5 mg PO TID PRN muscle spasm #42 11/08/23 03/09/24 Rx tabs duloxetine 60 mg capsule,delayed 60 mg PO DIRECTED 03/09/24 03/09/24 History release quetiapine 50 mg tablet 50 mg PO DIRECTED 03/09/24 03/09/24 History New Prescriptions to Start Prescriptions: Allergies Allergy/AdvReac Type Severity Reaction Status Date / Time No Known Allergies Allergy Verified 02/11/24 08:54 Assessment and Plan *Assessment and plan (1) Bilateral sacroiliitis: Status: Acute Category: Medical Code(s): M46.1 - Sacroiliitis, not elsewhere classified Plan Patient is experiencing worsening pain along the low back and bilateral hips. They did have limited range of motion of the lumbar spine along with point tenderness along bilateral SI joints and a positive bilateral Chela's, Geovanny's, Gaenslen's, compression and distraction exam. I did discuss with the patient that I do believe they would benefit from bilateral SI injections. Risk and benefits were discussed with the patient and they would like to proceed forward with this option. Patient has tried and failed conservative therapy including continued at home stretching exercise for longer than 12 weeks. Patient has had this pain for longer than 3 months. Patient has not ever had any prior SI injections and this will be a diagnostic with less than 1 mL of solution to be injected. I will also send in a 2-week dose of methocarbamol 500 mg 3 times daily as needed and prednisone 20 mg twice daily for 5 days. Patient will be scheduled for bilateral SI injections under fluoroscopy. Patient has been instructed to contact the clinic with any concerns before the next appointment. Dr. Harley has reviewed this note and agrees with this plan of care. This note was dictated using voice recognition software and make contain errors or omissions. All injections are used with Lidocaine or Bupivacaine and Depo Medrol.
[2024-11-19 12:25] VITALS: BP 95/62; PULSE 88; RESP 18; O2SAT 99; BMI 29.6
== END 2024-11-19 23:59 | disposition home or self-care (01) ==
PROVIDERS: PCP Family Medicine; Visit Provider Nurse Practitioner Family
DX: M46.1 Sacroiliitis, not elsewhere classified (principal); Z73.89 Other problems related to life management difficulty
CPT/HCPCS: 99212; G0463

== ENCOUNTER 2024-12-22 09:05 | Day surgery (SDC) | payer MEDICARE, SELFPAY ==
[2024-12-22 09:07] VITALS: BP 126/78; PULSE 73; PULSE 82; RESP 18; O2SAT 97
[2024-12-22 09:15] VITALS: BP 122/65; PULSE 75; RESP 16; TEMP 36.9; O2SAT 97; BMI 28.1
[2024-12-22] MEDS: BUPIVACAINE 0.25% 10ML INJ 25 MG IJ (09:15)
[2024-12-22] MEDS: DEXAMETHASONE 10MG/ML 1ML VIAL 10 MG (09:15)
[2024-12-22] MEDS: LIDOCAINE 1% 5ML PF VIAL 5 ML (09:15)
[2024-12-22 09:22] VITALS: BP 117/71; PULSE 78; RESP 16; O2SAT 97
--- NOTE | 2024-12-22 09:22 | P.PCN_ITS ---
Procedure Date: 12/22/24 Time: 09:15 Anesthesiologist:: Juan Covarrubias CRNA Complications:: None Pre-procedure Diagnosis:: Bilateral sacroiliitis Post-procedure Diagnosis:: Same Indications for Procedure:: Patient is a very pleasant 64-year-old male who comes our clinic today for bilateral sacroiliac joint injections cortisone local anesthetic. Patient describes low lumbar back pain as well as the bilateral posterior hip pain. He describes difficulty transitioning from sitting to standing. Difficulty with ambulation. He rates his pain 7/10. Procedure Details:: Procedure: Bilateral sacroiliac joint injections under fluoroscopy Informed consent was obtained and the risks and benefits of the procedure were explained to the patient.~ The patient was taken to the procedure room and noninvasive monitors were placed including a noninvasive blood pressure cuff and pulse oximeter.~ The patient was placed prone on the procedure table. Both hips were cleansed using Betadine as a cleansing solution. C-arm fluoroscopy was used to view the right sacroiliac joint.~ The skin and subcutaneous tissues were anesthetized using lidocaine 1.5% and a 25-gauge needle.~ After this, a 22-gauge spinal needle was inserted under fluoroscopic guidance into the inferior aspect of the right sacroiliac joint.~ Omnipaque dye was injected and good spread was seen throughout the joint.~ After this, approximately 5 mL of bupivacaine, 0.25% and Depo-Medrol, 40 mg was incrementally injected into the right sacroiliac joint. We then moved to the left sacroiliac joint.~ The skin and subcutaneous tissues were anesthetized using lidocaine 1.5% and a 25-gauge needle.~ After this, a 22- gauge spinal needle was inserted under fluoroscopic guidance into the inferior aspect of the left sacroiliac joint.~ Omnipaque dye was injected and good spread was seen throughout the joint. After this, approximately 5 mL of bupivacaine, 0.25% and Depo-Medrol, 40 mg was incrementally injected into the left sacroiliac joint.~ The patient tolerated the procedure well with no complications. The patient was observed in the Pain Clinic and then was discharged home neurologically intact. Plan and Disposition:: Patient was discharged without incident.
== END 2024-12-22 09:22 | disposition home or self-care (01) ==
PROVIDERS: PCP Family Medicine; Visit Provider Nurse Anesthetist, Certified Registered
DX: M46.1 Sacroiliitis, not elsewhere classified (principal)
CPT/HCPCS: 27096; G0260; J1100

== ENCOUNTER 2025-01-04 08:56 | Outpatient (POV) | payer MEDICARE, SELFPAY ==
--- OUTSIDE RECORDS SUMMARY | 2025-01-04 09:00 | XMS_ITS ---
Author Organization Unknown TREATMENT PLAN Planned Care Start Date Provider Encounter for Check-up [id number] [facility]
--- NOTE | 2025-01-04 09:12 | EXP.PAIN.SOA ---
[facility] Disclaimer: The information contained in this section may have been updated after the patient was seen, as this information can be updated by other users. Medical History Cataract Osteoarthritis EDOUARD (obstructive sleep apnea) Seasonal allergies HTN (hypertension) Depression Surgical History S/P LASIK (laser assisted in situ keratomileusis) of both eyes History of partial knee replacement H/O arthroscopic knee surgery H/O shoulder surgery Family History Other Heart disease Viral meningitis Social History Smoking Status: Unknown if ever smoked alcohol intake: never current occupational status: unemployed Travel in the last 8 weeks?: None PM Subjective & Objective Subjective Subjective:: Patient is a pleasant 64-year-old male who presents today for follow-up of his bilateral SI injections on 12/22/2024. Today he rates his pain a 3 out of 10. He denies any new falls or injuries. He does state that he has had at least 80% to 60% relief ongoing. He states he is able to do much more than he previously had following these injections. He does think that he did end up taking a few days to kick in and able injections themself were very painful. Patient does still continue have a longstanding history of peripheral neuropathy related to his diabetes and states that he has a lot of difficulty with the symptoms. Patient is asking additional questions for options that would provide more long-term relief. Patient had been previously prescribed baclofen however was recently given methocarbamol 500 mg 3 times a day. He denies any side effects along with his compounded cream. His Reggie has been reviewed and is appropriate. His Reggie has been reviewed and is appropriate. Review of Systems: General: No recent weight changes, no fever, no sleep disturbances Respiratory: No cough, no shortness of air, no recurring pulmonary infections Cardiovascular/peripheral vascular: No chest pain, no palpitations, no edema, no shortness of breath Gastrointestinal: No new onset incontinence, normal bowel movements reported Genitourinary: No new onset incontinence Musculoskeletal: Low back pain, peripheral neuropathy Psychiatric: [Normal mood/affect] Neurological: [Denies weakness in extremities], [denies balance issues] Pain at rest (0-10 scale): 3 Objective Objective:: Physical Exam: General: Alert and oriented x3, no acute distress, pleasant and cooperative Lungs: Respirations even and unlabored, symmetrical chest expansion Eyes: PERRL Musculoskeletal: Flexion and extension of lumbar spine within normal limits Neurological: Speech clear, no gross sensory deficit Has patient had previous pain injection?: Yes Percent improvement in pain since last injection: 80 to 60% Conservative treatment options previously tried: Home exercise plan Length of treatment: Longer than 12 weeks Meds Home Medications and Allergies Home Medications ?Medication ?Instructions ?Recorded ?Confirmed ?Type benazepril 40 mg tablet 40 mg PO DAILY BLOOD PRESSURE 09/18/23 12/22/24 History bupropion HCl 300 mg 24 hr tablet, 300 mg PO DAILY MOOD 09/18/23 12/22/24 History extended release fluoxetine 40 mg capsule 40 mg PO DAILY MOOD 09/18/23 12/22/24 History montelukast 10 mg tablet 10 mg PO DAILY ALLERGIES 09/18/23 12/22/24 History baclofen 5 mg tablet 5 mg PO TID PRN muscle spasm #42 11/08/23 12/22/24 Rx tabs duloxetine 60 mg capsule,delayed 60 mg PO DIRECTED 03/09/24 12/22/24 History release quetiapine 50 mg tablet 50 mg PO DIRECTED 03/09/24 12/22/24 History methocarbamol 500 mg tablet 500 mg PO TID #42 tabs 11/19/24 12/22/24 Rx prednisone 20 mg tablet 20 mg PO BID #10 tabs 11/19/24 12/22/24 Rx New Prescriptions to Start Prescriptions: Allergies Allergy/AdvReac Type Severity Reaction Status Date / Time No Known Allergies Allergy Verified 02/11/24 08:54 Assessment and Plan *Assessment and plan (1) Lumbar radiculopathy: Status: Acute Category: Medical Code(s): M54.16 - Radiculopathy, lumbar region (2) Degenerative disc disease, lumbar: Status: Acute Category: Medical Code(s): M51.369 - Other intervertebral disc degeneration, lumbar region without mention of lumbar back pain or lower extremity pain Plan Patient has had significant relief following his SI injections and does not require any additional injection therapy at this time. We did discuss over multiple options including the spinal cord stimulator trial to see if this does help his peripheral neuropathy symptoms that are associated with his diabetes. Patient was reviewed over risk and benefits and educational handouts at today's visit. Patient will return to clinic in 1 month and we will follow-up at that time if he would like to proceed forward with the trial at a later date. Patient agrees with this plan of care. Patient has been instructed to contact the clinic with any concerns before the next appointment. Dr. Harley has reviewed this note and agrees with this plan of care. This note was dictated using voice recognition software and make contain errors or omissions. All injections are used with Lidocaine, Bupivacaine and dexamethasone. Occasionally urine drug screen is needed to verify patient's compliance with our office pain contract. This is ordered based off specific treatments related to chronic pain with the potential to abuse certain medications.
[2025-01-04 10:06] VITALS: BP 98/80; PULSE 77; RESP 14; O2SAT 99; BMI 28.1
== END 2025-01-04 23:59 | disposition home or self-care (01) ==
LOC: SC.PAIN 08:57
PROVIDERS: PCP Family Medicine; Visit Provider Nurse Practitioner Family
DX: M51.16 Intervertebral disc disorders with radiculopathy, lumbar region (principal)
CPT/HCPCS: 99212; G0463